=== PATIENT | female | born 1970 | race Caucasian/White ===

== ENCOUNTER 2021-03-05 20:33 | Emergency (ER) | payer MEDICARE, OTHER ==
[~2021-03-05] VITALS: Ht 172.7 cm; Wt 90.7 kg
[~2021-03-05 20:33] MED LIST: ASPIRIN EC325 MG PO; BENTYL10 MG PO; COUMADIN5 MG PO; CYCLOBENZAPRINE10 MG PO; ESTRADIOL1 MG PO; IBUPROFEN800 MG PO; NORCO 5-325 TA1 EACH PO; PERCOCET 5-3251 EACH PO; PREDNISONE20 MG PO; PROVENTIL HFA6.7 GM INH; SYMBICORT 16010.2 GM INH; ZOFRAN ODT4 MG SL
--- OUTSIDE RECORDS SUMMARY | 2021-03-05 20:36 | XMS ---
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 Phong has no Care Guidelines for this patient. John VISIT COUNT (12 MO.) 1 [facility] Cesar TOTAL 1 NOTE: Visits indicate total known visits. ED/UCC VISIT TRACKING (12 MO.) 03/05/2021 20:33 [facility] [place] TYPE: Emergency COMPLAINT: - RT KNEE PAIN INPATIENT VISIT TRACKING (12 MO.) No inpatient visits to display in this time frame [email or web address]
[2021-03-05] MEDS ORDERED: CEPHALEXIN500 MG PO (22:09)
== END 2021-03-05 22:56 | disposition home or self-care (01) ==
LOC: ED 20:33
DX: M79.604 Pain in right leg (principal); N39.0 Urinary tract infection, site not specified; J45.909 Unspecified asthma, uncomplicated; Z86.16 Personal history of COVID-19; F17.200 Nicotine dependence, unspecified, uncomplicated; Z91.040 Latex allergy status; Z88.2 Allergy status to sulfonamides; Z88.8 Allergy status to other drugs, medicaments and biological substances; Z88.5 Allergy status to narcotic agent; Z88.1 Allergy status to other antibiotic agents; Z79.52 Long term (current) use of systemic steroids
CPT/HCPCS: 81001; 93971; 96374; 99284-25; J0696

== ENCOUNTER 2021-08-10 12:57 | Day surgery (SDC) | payer MEDICARE, OTHER ==
[~2021-08-10] VITALS: Ht 172.7 cm; Wt 93.4 kg
[~2021-08-10 12:57] MED LIST changes: +CEPHALEXIN500 MG PO
[2021-08-10] MEDS ORDERED: ADVAIR 250-501 EACH INH (13:19)
[2021-08-10] MEDS ORDERED: ALLEGRA ALLERG180 MG PO (13:21)
[2021-08-10] MEDS ORDERED: OMEPRAZOLE20 MG PO (13:21)
[2021-08-10] MEDS ORDERED: VITAMIN D3125 MC1 PO (13:22)
[2021-08-10] MEDS ORDERED: SINGULAIR5 MG PO (13:22)
[2021-08-10] MEDS ORDERED: K-TAB ER20 MEQ PO (13:22)
[2021-08-10] MEDS ORDERED: CHOLEST OFF450 MG PO (13:23)
--- NOTE | 2021-08-10 15:35 | NUR ---
08/10/21 1535 Genna Clemons 1452 PT ARRIVED IN PAUC SLEEPY WITH NO C/O'S. ABD SOFT AND PASSING FLATUS. 1505 DR AT BEDSIDE TALKING WITH PT. ALL QUESTIONS ANSWERED. 1525 SITTING UP IN BED SIPPING ON WATER. 1535 GETTING DRESSED WITH STAND BY ASSIST.
--- NOTE | 2021-08-11 13:57 | OR ---
[facility] [address] [place], [place] [address] Signed DATE OF OPERATION: 08/10/2021 SURGEON: Sofia Hall MD PREOPERATIVE DIAGNOSES: Diffuse abdominal pain including epigastric and generalized abdominal pain, episodic blood per rectum and constipation. POSTOPERATIVE DIAGNOSES: 1. Normal upper endoscopy. 2. Small polyp of left colon, otherwise normal colon. PROCEDURES: 1. Esophagogastroduodenoscopy with biopsy. 2. Total colonoscopy to cecum with cold morcellation polypectomy x1 and biopsy of rectum. ANESTHESIA: Intravenous sedation, fentanyl 200 mcg and Versed 6 mg. INDICATIONS: This 51-year-old white woman is a patient of Dr. Laurent, who is referred for consideration of upper endoscopy and colonoscopy on the basis of her various abdominal complaints. She has had longstanding complaints of epigastric pain. She has had cholecystectomy in the past as well as hysterectomy. She does describe reflux type symptoms with substernal pain from time to time, no associated dysphagia. She has no esophageal cancer history in her family that she knows of. She has been recommended for upper endoscopy as well as colonoscopy on the basis of her family history. She does have family history of colon cancer in her paternal and maternal grandmother. She has no blood per rectum. She is admitted at this time to undergo colonoscopy and upper endoscopy. She understands the risks of bleeding, infection, perforation. FINDINGS: Upper endoscopy was normal in every way. Biopsies were obtained nevertheless to assess for occult disease. On colonoscopy, the prep was good. Complete colonoscopy was undertaken of the cecum, which did show a small polyp of the left colon, this was excised. Biopsies taken of the rectum to assess for occult colitis as well. DESCRIPTION OF PROCEDURE: Electronically Signed By: SOFIA HALL MD 08/11/21 1357 PATIENT NAME: SANDI MATTHEWS OPERATIVE REPORT DATE OF : 72 REPORT #: [id number] PHYSICIAN: SOFIA HALL MD PCP: TREY LAURENT MD REPORT IS CONFIDENTIAL AND NOT TO BE RELEASED WITHOUT AUTHORIZATION [facility] [address] [place], [place] [address] Signed The patient was brought to the endoscopy suite and placed in lateral decubitus position. Given intravenous sedation to the point of slurred speech and nystagmus with full cardiopulmonary monitoring. Lidocaine hypopharyngeal spray anesthesia was administered as well. An Olympus video upper endoscope was passed into the hypopharynx. The vocal cords visualized. The scope was passed into the esophagus. Esophagus was easily traversed as was the stomach and duodenum. These all appeared normal. Antral motility was normal. The pylorus was normal. Biopsies were taken of the duodenum to assess for celiac disease. The scope was withdrawn and biopsies then taken of the antrum for both ELENA and pathologic testing and appeared normal, retroflexed view showed a normal flap valve. The scope was straightened and withdrawn and biopsies taken and the esophagus was entirely normal. Careful withdrawal of scope showed no other abnormalities. Plans were then made for colonoscopy. Additional sedation was given. Digital rectal examination was found to be normal. An Olympus video colonoscope was passed in the rectum and manipulated throughout the colon ultimately intubating the cecum itself. The ileocecal valve and appendiceal orifice were normal. The scope was withdrawn from that point and examination throughout showed no sign of abnormality until the left colon approximately 40 cm where a small sessile polyp was noted, this was excised with cold morcellation technique. Further withdrawal of scope showed no other abnormalities. Biopsies were taken of the rectum to assess for occult colitis. The scope was removed after retroflexed view was otherwise normal. The patient was taken to the recovery room in good condition. CONCLUDING DIAGNOSIS: Given her constellation of symptoms, most likely she has irritable bowel syndrome I would think, this particularly true since she has had cholecystectomy in the past, hysterectomy, and so on. Consideration will be made for a low FODMAP diet. She will follow up with Dr. Laurent as needed in the future. We will give a copy of a low FODMAP diet for her to consider. MD CHALINO Caballero/REINIERL /[id number] Electronically Signed By: SOFIA HALL MD 08/11/21 1357 PATIENT NAME: SANDI MATTHEWS OPERATIVE REPORT DATE OF : 72 REPORT #: [id number] PHYSICIAN: SOFIA HALL MD PCP: TREY LAURENT MD REPORT IS CONFIDENTIAL AND NOT TO BE RELEASED WITHOUT AUTHORIZATION [facility] [address] [place] [id number] Signed Copies: ~ Electronically Signed By: SOFIA HALL MD 08/11/21 1357 PATIENT NAME: SANDI MATTHEWS OPERATIVE REPORT DATE OF : 72 REPORT #: [id number] PHYSICIAN: SOFIA HALL MD PCP: TREY LAURENT MD REPORT IS CONFIDENTIAL AND NOT TO BE RELEASED WITHOUT AUTHORIZATION
== END 2021-08-10 15:40 | disposition home or self-care (01) ==
LOC: OPS 12:57 → DS 12:59 → OPS 14:00 → DS 14:00 → OPS 15:40
PROVIDERS: ATTEND Surgery
PROC: 0DBG8ZX Excision of Left Large Intestine, Via Natural or Artificial Opening Endoscopic, Diagnostic (ICD-10-PCS; 2021-08-10)
PROC: 0DBP8ZX Excision of Rectum, Via Natural or Artificial Opening Endoscopic, Diagnostic (ICD-10-PCS; 2021-08-10)
PROC: 0DB98ZX Excision of Duodenum, Via Natural or Artificial Opening Endoscopic, Diagnostic (ICD-10-PCS; principal; 2021-08-10 14:00)
PROC: 0DB78ZX Excision of Stomach, Pylorus, Via Natural or Artificial Opening Endoscopic, Diagnostic (ICD-10-PCS; 2021-08-10 14:00)
DX: D12.4 Benign neoplasm of descending colon (principal); R12 Heartburn; F17.210 Nicotine dependence, cigarettes, uncomplicated; J45.909 Unspecified asthma, uncomplicated; D47.Z2 Castleman disease; Z90.49 Acquired absence of other specified parts of digestive tract; Z90.711 Acquired absence of uterus with remaining cervical stump; Z88.5 Allergy status to narcotic agent
CPT/HCPCS: 84703; 99153; G0500; J2250; J3010; J7121

== ENCOUNTER 2024-10-06 20:24 | Inpatient (IN) | payer MEDICARE, OTHER ==
[~2024-10-06] VITALS: Ht 172.7 cm; Wt 91.8 kg
[~2024-10-06 20:24] MED LIST changes: +ADVAIR 250-501 EACH INH; +ALLEGRA ALLERG180 MG PO; +CHOLEST OFF450 MG PO; +K-TAB ER20 MEQ PO; +OMEPRAZOLE20 MG PO; +SINGULAIR10 MG PO; +SKYRIZI PE150 MG/1 M SUB-Q; +VITAMIN D3125 MC1 PO
[2024-10-06] MEDS ORDERED: fentaNYL citrate 100 MCG/2 ML VIAL IV ONE (20:45)
[2024-10-06] MEDS ORDERED: KETOROLAC TROMETHAMINE 15 MG/ML VIAL IV ONE (20:45)
[2024-10-06] MEDS ORDERED: ondansetron HCL 4 MG/2 ML VIAL IV PRN ×2 (20:45→22:15)
[2024-10-06 20:50] LABS: BASOPHILS 0.4 % (0-2); EOSINOPHILS 0.2 % (0-6); HEMOGLOBIN 14.5 g/dL (12.0-18.0); LYMPHOCYTES 5.9 % (24-44); MCH 31.7 (27-36); MCHC 34.5 g/dl (30-36); MCV 91.8 fl (81-99); MONOCYTES 1.6 % (0-12); NEUTROPHILS 91.9 % (39-80); PLATELET COUNT 177 K/uL (140-440); RBC 4.57 M/ul (4.3-5.7); RDW 13.3 (10.5-15.0)
[2024-10-06 20:59] LABS: BILIRUBIN, URINE NEGATIVE (negative); BLOOD/HGB, URINE LARGE (Negative); KETONE, URINE NEGATIVE (Negative); LEUK ESTERASE, URINE SMALL (negative); NITRITE, URINE POSITIVE (negative)
[2024-10-06] MEDS ORDERED: SODIUM CHLORIDE 0.9% 1,000 ML IV ONE ×2 (21:00→22:15)
[2024-10-06 21:08] LABS: WHITE BLOOD CELLS, URINE 21-40 /HPF (0-5)
[2024-10-06 21:08] LABS: ALBUMIN 3.7 g/dL (3.4-5.0); ALBUMIN/GLOBULIN RATIO 0.86 (1.1-2.4); ANION GAP 12.9 (7-21); BILIRUBIN, TOTAL 0.9 ng/dL (0.2-1.0); BUN/CREATININE RATIO 18.25 (6.0-28.6); CALCIUM 9.5 mg/dL (8.5-10.1); CREATININE, SERUM 1.26 mg/dL (0.55-1.02); POTASSIUM 3.9 mmol/L (3.5-5.1)
[2024-10-06 21:09] LABS: BACTERIA, URINE 3+ /hpf (negative); COLLECTION TYPE, URINE CLEAN CATCH; CRYSTALS, URINE NONE SEEN (0-1+); EPITHELIAL CELLS, URINE SQUAMOUS 1+ /lpf (0-1+); REFLEX CULTURE, URINE Yes (No)
[2024-10-06 21:11] LABS: CASTS, URINE HYALINE 1+ \\lpf
[2024-10-06] MEDS ORDERED: CEFTRIAXONE/SODIUM CHLORIDE 2 GM/100 ML PIGGYBACK IV ONE (21:15)
[2024-10-06 21:29] LABS: ALBUMIN 3.7 g/dL (3.4-5.0); ALBUMIN/GLOBULIN RATIO 0.84 (1.1-2.4); BILIRUBIN, DIRECT 0.2 mg/dL (0.0-0.2); BILIRUBIN, INDIRECT 0.6 (0.1-0.7); BILIRUBIN, TOTAL 0.8 ng/dL (0.2-1.0); PROTEIN, TOTAL 8.1 g/dL (6.4-8.2)
[2024-10-06] MEDS ORDERED: ALBUTEROL/IPRATROPIUM 3 ML NEB INH ONE (21:30)
[2024-10-06] MEDS ORDERED: HYDROmorphone HCL 1 MG/ML SYR IV PRN ×2 (22:00→22:15)
[2024-10-06] MEDS ORDERED: ACETAMINOPHEN 325 MG TAB PO PRN (22:15)
[2024-10-06] MEDS ORDERED: ALBUTEROL/IPRATROPIUM 3 ML NEB INH PRN ×2 (22:15→23:30)
[2024-10-06] MEDS ORDERED: SODIUM CHLORIDE 0.9% 1,000 ML IV SCH (22:15)
[2024-10-06] MEDS ORDERED: KETOROLAC TROMETHAMINE 15 MG/ML VIAL IV PRN (22:15)
[2024-10-06 23:08] VITALS: BP 86/42
[2024-10-06 23:27] VITALS: BP 91/46
--- NOTE | 2024-10-06 23:40 | NUR ---
New admit to the medical floor. Patient awake, alert and oriented x4. Patient reports bilat flank pain and headache pain. ICe pack and tylenol 650mg po admin at this time with a snack. Patient mother at bedside with her. IV fluids infusing per order. Patient oriented to room and call light.
[2024-10-07] VITALS (12 sets, daily range): BP systolic 85–117; BP diastolic 38–57
--- NOTE | 2024-10-07 03:46 | NUR ---
REPORT RECEIVED FROM LASHAUN POLLARD. ASSUMED CARE OF pt. pt AWAKE, RESTING IN BED, STATES PAIN IS BETTER. DENIES NEEDS. IVF INFUSING WNL. CALL LIGHT IN REACH. VERBALIZES UNDERSTANDING NOT TO GET OUT OF BED WITHOUT ASSIST.
--- NOTE | 2024-10-07 03:47 | NUR ---
CALL LIGHT ANSWERED. pt COMPLAINS OF SOB. REQUESTS PRN NEB TREATMENT. ADMINISTERED AT THIS TIME. CALL LIGHT IN REACH.
[2024-10-07 05:34] LABS: BASOPHILS 0.3 % (0-2); EOSINOPHILS 0.2 % (0-6); HEMATOCRIT 30.2 % (35.0-50.0); HEMOGLOBIN 10.4 g/dL (12.0-18.0); LYMPHOCYTES 8.3 % (24-44); MCH 31.8 (27-36); MCHC 34.5 g/dl (30-36); MCV 92.1 fl (81-99); MONOCYTES 5.7 % (0-12); NEUTROPHILS 85.5 % (39-80); PLATELET COUNT 136 K/uL (140-440); RBC 3.28 M/ul (4.3-5.7); RDW 13.1 (10.5-15.0)
--- NOTE | 2024-10-07 05:46 | NUR ---
IN ROOM AFTER LAB DRAW. SBA TO RESTROOM FOR VOID, pt REPORTS FEELING DIZZY UPON SITTING AT SIDE OF BED, GAIT STEADY WHEN AMBULATING. 250 ML VOID AND BACK TO BED. ASSESSMENT COMPLETE, LUNG SOUNDS CLEAR THROUGHOUT ALL LOBES. TRACE EDEMA BLE AND RIGHT HAND. IV SITE FLUSHED WNL. PRN TORADOL ADMINISTERED FOR 4/10 POWELL. CALL LIGHT IN REACH. LIGHTS OFF IN ROOM.
[2024-10-07 05:55] LABS: ALBUMIN 2.3 g/dL (3.4-5.0); ALBUMIN/GLOBULIN RATIO 0.74 (1.1-2.4); ANION GAP 11.7 (7-21); BILIRUBIN, TOTAL 0.4 ng/dL (0.2-1.0); BUN/CREATININE RATIO 16.66 (6.0-28.6); CALCIUM 7.9 mg/dL (8.5-10.1); CREATININE, SERUM 1.08 mg/dL (0.55-1.02); MAGNESIUM 1.8 mg/dL (1.8-2.4); POTASSIUM 3.7 mmol/L (3.5-5.1); PROTEIN, TOTAL 5.4 g/dL (6.4-8.2)
--- NOTE | 2024-10-07 07:44 | NUR ---
REPORT RECEIVED BY NIGHT RN - PT AWAKE IN BED LOOKING AT PHONE. C/O HEADACHE AND TEETH PAIN. STATES DILAUDID MAYBE WORSENED HEADACHE. ICE PACK PROVIDED. CALL LIGHT IN REACH.
[2024-10-07] MEDS ORDERED: ALBUTEROL/IPRATROPIUM 3 ML NEB INH PRN (08:27)
[2024-10-07] MEDS ORDERED: BUDESONIDE 0.5 MG/2 ML VIAL INH SCH ×2 (08:27→09:00)
[2024-10-07] MEDS ORDERED: ALBUTEROL SULFATE 0.083% 3 ML VIAL INH PRN (08:30)
--- NOTE | 2024-10-07 08:40 | NUR ---
AM ASSESSMENT COMPLETE - PT COMPLAINS OF HEADACHE AND GENERALIZED ACHE/UNWELL FEELING. PRN TYLENOL ADMINISTERED FOR THIS, ICE PACK ON HEAD. AWAITING FURTHER ADMIT ORDERS.
--- NOTE | 2024-10-07 10:58 | NUR ---
PT UP TO AMBULATE TO BATHROOM - HEADACHE UPON STANDING IS HER BIGGEST COMPLAINT AT THIS TIME. HEADACHE NOT IMPROVED WITH TYLENOL, ONLY STAYING STILL IN BED HELPS. PT DENIES A HISTORY OF MIGRAINES. BACK TO BED WITH CALL LIGHT IN REACH.
--- NOTE | 2024-10-07 12:21 | NUR ---
RN ROUNDING ON PT - PT SITTING UP IN BED EATING LUNCH WITH MOTHERS ASSISTANCE. CALL LIGHT IN REACH.
[2024-10-07] MEDS ORDERED: HYDROCODONE/ACETA 5/325 TAB PO PRN (12:30)
[2024-10-07] MEDS ORDERED: SODIUM CHLORIDE 0.9% 1,000 ML IV SCH (12:30)
[2024-10-07] MEDS ORDERED: ondansetron HCL 4 MG/2 ML VIAL IV PRN (12:30)
--- NOTE | 2024-10-07 13:28 | NUR ---
PRN ADMINISTERED PER PT REQUEST FOR 5/10 HEAD AND BACK PAIN. PT RESTING IN BED LOOKING AT PHONE, NO DISTRESS NOTED. IV SITE PATENT WITH IVF INFUSING PER EMAR. PT REPORTS PAIN IN ABD AFTER URINATING, EDUCATION ON UTI PROVIDED. MOTHER AT BEDSIDE. CALL LIGHT IN REACH.
--- NOTE | 2024-10-07 16:37 | NUR ---
PATIENT UP TO BATHROOM TO VOID. PATIENT IS ON 2L OF OXYGEN, PULSE OX TREND SHOWS 5 EPISODES PER HOUR THAT PATIENT DROPS BELOW 85% WHILE TRYING TO SLEEP. PATIENT REPORTS CONTINUED HEADACHE.
[2024-10-07] MEDS ORDERED: KETOROLAC TROMETHAMINE 15 MG/ML VIAL IV ONE (16:45)
--- NOTE | 2024-10-07 16:49 | NUR ---
MED REC COMPLETE
--- NOTE | 2024-10-07 17:30 | NUR ---
PT CONTINUES TO COMPLAINE OF 7/10 GENERALIZED PAIN AND WORSENING HEADACHE WHEN STANDING TO AMBULATE TO THE BATHROOM. PT REPORTS CHILLS, ORAL TEMP 100.3. IV TORADOL ADMINISTERED PER EMAR. PT PICKING AT DINNER. CPOX IN PLACE.
--- NOTE | 2024-10-07 19:05 | NUR ---
REPORT RECEIVED FROM KRYSTYNA WILKS. pt RESTING THE BED. NEW BAG OF IVF INFUSING PER ORDER. pt DENIES ANY NEEDS AT THIS TIME. CALL LIGHT WITHIN REACH.
[2024-10-07] MEDS ORDERED: CEFTRIAXONE/SODIUM CHLORIDE 2 GM/100 ML PIGGYBACK IV SCH (21:00)
[2024-10-07] MEDS ORDERED: MELATONIN 3 MG TAB PO PRN (21:00)
--- NOTE | 2024-10-07 21:15 | NUR ---
ASSESSMENT AND VITAL SIGNS DONE. pt UP TO THE BR, SBA FOR LINE/TUBE MANAGEMENT. pt C/O 5/10 PAIN. PRN PAIN MEDS ADMINISTERED. HEAT PACK PROVIDED. SCHEDULED MEDS ADMINISTERED. pt DENIES ANY OTHER NEEDS AT THIS TIME. CALL LIGHT WITHIN REACH. WATER REFRESHED. 1LNC PLACED ON pt FOR CHIEF PROGRAM OFFICER.
[2024-10-08] VITALS (10 sets, daily range): BP systolic 96–132; BP diastolic 49–62
--- NOTE | 2024-10-08 00:03 | NUR ---
IN RM FOR BEEPING IV. pt STATES SHE HAS TO USE THE BR. THIS RN ASSISSTED pt TO BSC DUE TO pt HAVING PAIN IN HER HEAD THAT INCREASES WITH ACTIVITY AND LIGHT. pt GREATFUL AND STATES THAT IT HER PAIN WAS BETTER WHEN SHE DID IT THAT WAY. HOT PACK PROVIDED. pt DENIES ANY OTHER NEEDS AT THIS TIME. CPOX ON. 2LNC ON FOR THE NIGHT. CALL LIGHT WITHIN REACH.
--- NOTE | 2024-10-08 02:11 | NUR ---
pt RESTING IN THE BED. WATER REFRESHED. pt DENIES ANY OTHER NEEDS AT THIS TIME. CALL LIGHT WITHIN REACH.
--- NOTE | 2024-10-08 02:21 | NUR ---
pt CALLED FOR BEEPING IV. NEW HOT PACK PROVIDED. WATER REFRESHED. pt DENIES ANY OTHER NEEDS AT THIS TIME. CALL LIGHT WITHIN REACH.
--- NOTE | 2024-10-08 04:00 | NUR ---
IN RM TO CHECK ON pt. pt UP TO THE BR. pt BACK TO THE BED. HOT PACK PROVIDED. pt REQUEST BREATHING TREATMENT. RT CALLED. NO OTHER NEEDS AT THIS AT THIS TIME. CALL LIGHT WITHIN REACH.
[2024-10-08 05:24] LABS: HEMATOCRIT 30.7 % (35.0-50.0)
[2024-10-08 05:26] LABS: BASOPHILS 0.5 % (0-2); EOSINOPHILS 0.8 % (0-6); HEMOGLOBIN 10.2 g/dL (12.0-18.0); LYMPHOCYTES 15.3 % (24-44); MCH 31.2 (27-36); MCHC 33.4 g/dl (30-36); MCV 93.6 fl (81-99); MONOCYTES 8.8 % (0-12); NEUTROPHILS 74.6 % (39-80); PLATELET COUNT 115 K/uL (140-440); RBC 3.28 M/ul (4.3-5.7); RDW 13.5 (10.5-15.0)
[2024-10-08 05:44] LABS: ALBUMIN/GLOBULIN RATIO 0.59 (1.1-2.4); ANION GAP 8.6 (7-21); BILIRUBIN, TOTAL 0.2 ng/dL (0.2-1.0); BUN/CREATININE RATIO 9.09 (6.0-28.6); CALCIUM 7.9 mg/dL (8.5-10.1); CREATININE, SERUM 0.99 mg/dL (0.55-1.02); MAGNESIUM 1.6 mg/dL (1.8-2.4); PHOSPHORUS, INORGANIC 2.9 mg/dL (2.5-4.9); POTASSIUM 3.6 mmol/L (3.5-5.1); PROTEIN, TOTAL 5.4 g/dL (6.4-8.2)
--- NOTE | 2024-10-08 06:01 | NUR ---
IN RM TO OFF BEEPING IV. pt C/O 04/04 PAIN. PRN PAIN MEDS ADMINISTERED. pt DENIES ANY OTHER NEEDS AT THIS TIME. CALL LIGHT WITHIN REACH.
--- NOTE | 2024-10-08 08:06 | NUR ---
PATIENT UP TO BATHROOM THEN TO CHAIR, SBA. LINENS CHANGED. AM CARE DONE. CALL LIGHT IN REACH. NO FURTHER NEEDS AT THIS TIME.
[2024-10-08] MEDS ORDERED: MAGNESIUM SULFATE 2 GM/50 ML BAG IV ONE (08:15)
--- NOTE | 2024-10-08 08:15 | NUR ---
RN IN ROOM - AM ASSESSMENT COMPLETE. PT ALREADY UP IN CHAIR FOR BREAKFAST WITH METAL STAMPER ASSISTANCE. STATES HEADACHE IS SOMEWHAT IMPROVED WITH PRN NORCO AT 0600. DENIES NAUSEA, FLANK PAIN WORSE AFTER URINATION. PT UPDATED ON CURRENT PLAN OF CARE TO CONTINUE IV ABX AND AWAIT URINE CULTURE RESULTS, PAIN CONTROL, AND MONITORING VS FOR FEVER AND HYPOTENSION. PT STATES UNDERSTANDING. IV SITE PATENT, MAG RIDER STARTED. CALL LIGHT IN REACH.
[2024-10-08] MEDS ORDERED: ENOXAPARIN SODIUM 40 MG/0.4 ML SYR SUB-Q SCH (09:00)
[2024-10-08] MEDS ORDERED: PANTOPRAZOLE SODIUM 40 MG TABEC PO SCH (09:00)
--- NOTE | 2024-10-08 09:30 | NUR ---
INTO SEE PATIENT. PERSONAL INFORMATION REVIEWED PATIENT MARII BLACKMAN PHONE NUMBER: [phone] WILL UPDATE WITH ADMITTING. PATIENT LIVES AT HOME WITH ADULT SON. ONE LEVEL HOME AND NO DIFFCULTY GETTING INTO. PATIENT DRIVES HERSELF AND WILL HAVE BOYFRIEND HUNTER TO PICKUP. PATIENT USES NEBULIZER THROUGH [facility]. NO DIFFCULTY OBTAINING FOOD OR PAYING FOR UTILITIES. PATIENT DOES NOT CASE MANAGEMENT AT THIS TIME. WILL CONTINUE FOLLOW THROUGH HOSPITAL STAY.
--- NOTE | 2024-10-08 09:43 | NUR ---
NEW BAG OF IVF HANGING. BREAKFAST INTAKE RECORDED AND TRAY REMOVED.
--- NOTE | 2024-10-08 10:07 | NUR ---
VS AND I/O COMPLETE. PT BACK TO BED TO REST AFTER AMBULATING TO BATHROOM. DENIES DIZZINESS WITH AMBULATION, STEADY ON FEET. 2L NC PLACED R/T DESATURATION R/T NARCOTIC USE, NOT CHRONIC, CPOX IN PLACE. URINE KWOK AND CONCENTRATED WITH SOME SEDIMENT. CALL LIGHT IN REACH.
--- NOTE | 2024-10-08 11:20 | NUR ---
UR CLINICAL REVIEW: 2 MN FOR [facility]ERSAL[facility]-MEETS INPT CRITERIA FOR PYELONEPHRITIS MEDICARE INPT 10/07/24 ORDER MATCHES REG NO AUTH REQUIRED PER MEDICARE GUIDELINES DISCHARGE TO HOME WHEN STABLE
--- NOTE | 2024-10-08 11:30 | NUR ---
RN IN ROOM TO ATTEND TO ALARMING IV PUMP - PT RESTING IN BED AND DENIES NEEDS AT THIS TIME. CALL LIGHT IN REACH.
[2024-10-08] MEDS ORDERED: PHARMACY RENAL DOSE ADJUSTMENT 1 DOSE MISC PO SCH (12:00)
--- NOTE | 2024-10-08 13:30 | NUR ---
RN ROUNDING ON PT - REQUESTS PAIN MEDICATION, PRN ADMINISTERED. IV SITE PATENT WITH IVF RUNNING. PT STATES SHE IS GENERALLY IMPROVING, PAIN IS DECREASING. CONTINUING TO MONITOR FOR URINE CULTURE RESULTS. CALL LIGHT IN REACH.
--- NOTE | 2024-10-08 17:40 | NUR ---
PT UP TO BATHROOM - NEEDS MINIMAL ASSISTANCE WITH EQUIPMENT. DENIES NEED FOR FURTHER PAIN MEDICATION AT THIS TIME.
--- NOTE | 2024-10-08 17:53 | NUR ---
PATIENT IN BED RESTING AT THIS TIME. VITALS AND I&O'S DONE AND CHARTED. FRESH ICE WATER GIVEN. CALL LIGHT IN REACH. NO FURTHER NEEDS AT THIS TIME.
--- NOTE | 2024-10-08 19:05 | NUR ---
REPORT RECEIVED FROM KRYSTYNA WILKS. BOARD UPDATED. pt DENIES ANY OTHER NEEDS AT THIS TIME. CALL LIGHT WITHIN REACH.
--- NOTE | 2024-10-08 21:10 | NUR ---
ASSESSMENT AND VITAL SIGNS DONE. pt UP TO THE BR. PRN AND SCHEDULED MEDS ADMINISTERED. pt DENIES ANY OTHER NEEDS AT THIS TIME. CALL LIGHT WITHIN REACH. 2LNC PLACED ON pt FOR THE NIGHT.
[2024-10-09] VITALS (7 sets, daily range): BP systolic 108–146; BP diastolic 50–73
--- NOTE | 2024-10-09 00:42 | NUR ---
pt CALLED FOR IV ALARMING. NEW BAG OF IVF HUNG AND INFUSING PER ORDER. pt UP TO THE BR. pt BACK TO BED. pt PLACED ON 2L OXYMASK. pt DENIES ANY OTHER NEEDS AT THIS TIME. CALL LIGHT WITHIN REACH.
--- NOTE | 2024-10-09 02:35 | NUR ---
pt RESTING IN THE BED WITH EYES CLOSED. RR EVEN AND UNLABORED. CALL LIGHT WITHIN REACH.
[2024-10-09 05:26] LABS: BASOPHILS 0.5 % (0-2); EOSINOPHILS 1.4 % (0-6); HEMATOCRIT 31.1 % (35.0-50.0); HEMOGLOBIN 10.6 g/dL (12.0-18.0); LYMPHOCYTES 14.4 % (24-44); MCH 31.3 (27-36); MCHC 34.2 g/dl (30-36); MCV 91.7 fl (81-99); MONOCYTES 8.8 % (0-12); NEUTROPHILS 74.9 % (39-80); PLATELET COUNT 154 K/uL (140-440); RBC 3.39 M/ul (4.3-5.7); RDW 13.4 (10.5-15.0)
[2024-10-09 05:43] LABS: ANION GAP 12.7 (7-21); BUN/CREATININE RATIO 10.75 (6.0-28.6); CALCIUM 8.6 mg/dL (8.5-10.1); CREATININE, SERUM 0.93 mg/dL (0.55-1.02); MAGNESIUM 1.5 mg/dL (1.8-2.4); POTASSIUM 3.7 mmol/L (3.5-5.1)
--- NOTE | 2024-10-09 07:23 | NUR ---
VERBAL REPORT RECEIVED FROM LASHAUN KLINE. PT IS AWAKE AND ALERT IN BED. ICE CHIPS PROVIDED PER PT REQUEST. NO FURTHER REQUESTS AT THIS TIME.
--- NOTE | 2024-10-09 08:08 | NUR ---
IS PROVIDED. EDUCATION ON USE OF IS PROVIDED. PT RETURN DEMONSTRATES USE. NON-PRODUCTIVE COUGH NOTED WITH USE OF IS. PT SATS 93% ON RA.
[2024-10-09] MEDS ORDERED: MAGNESIUM OXIDE 400 MG TABLET PO ONE (08:15)
[2024-10-09] MEDS ORDERED: SENNOSIDES/DOCUSATE 1 EA TAB PO SCH (09:00)
[2024-10-09] MEDS ORDERED: POLYETHYLENE GLYCOL 3350 1 PACKET PO SCH (09:00)
[2024-10-09] MEDS ORDERED: BUTALB/ACETAMINOPHEN/CAFFEINE 1 EACH CAP PO PRN (09:45)
--- NOTE | 2024-10-09 10:08 | NUR ---
PT NOT AVAILABLE FOR VISIT. PROVIDED PRAYER.
--- NOTE | 2024-10-09 12:09 | NUR ---
PT UP TO TOILET, VOIDS CLEAR YELLOW URINE AND PASSES LARGE FORMED BM. PT TO RECLINER. SITS UP IN RECLINER WITH BLE ELEVATED. CALL LIGHT IN REACH. PT RATES HEADACHE 6/10 AT THIS TIME. PT RECEIVES BUTALBITAL/ACETAMENOPHEN/CAFFEINE MEDICATION FOR HEADACHE, SEE EMAR. WARM BLANKET PROVIDED, NO FURTHER REQUESTS AT THIS TIME.
--- NOTE | 2024-10-09 13:45 | NUR ---
Spoke with Kera. She states she feels a little better. Cont. to complain of severe headache. Blinds closed and this did help somewhat. She denies needs on dc.
--- NOTE | 2024-10-09 17:07 | NUR ---
PT RESTS IN BED, AWAKE AND ALERT, EATS DINNER, FAMILY X2 AT BEDSIDE. PT REPORTS HEADACHE NOW 2/10, TOLERABLE AT THIS TIME. CALL LIGHT IN REACH. ICE WATER PROVIDED. NO FURTHER REQUESTS AT THIS TIME.
--- NOTE | 2024-10-09 19:05 | NUR ---
REPORT RECEIVED FROM KRYSTYNA WILKS. pt RESTING IN THE BED. BOARD UPDATED. pt DENIES ANY OTHER NEEDS AT THIS TIME. CALL LIGHT WITHIN REACH.
--- NOTE | 2024-10-09 20:30 | NUR ---
PATIENT REPORTS HAVING THE CHILLS. VITALS TAKEN AND RECORDED. PATIENT IS AFEBRILE AT THIST TIME. PATIENT ASSISTED TO THE RESTROOM A SBA. PATIENT IS BACK IN BED RESTING. IV INFUSING PER ORDER. PATIENT RATES PAIN AT A 6/10 IN HER LOWER BACK. NO FURTHER NEEDS NOTED. CALL LIGHT IN REACH.
--- NOTE | 2024-10-09 20:55 | NUR ---
PATIENT IS RESTING IN BED. PATIENTS TEMP REEVALUATED PATIENT CONTINUES TO REPORTS CHILLS AND BODY ACHES. PATIENTS TEMP REEVALUATED AND NOTED TO BE 101.1. PATIENTS BLANKETS REMOVED AND PRIMARY RN NOTIFIED. PM MEDS GIVEN PER ORDER. IV ABX INFUSING PER ORDER. PATIENT DENIES ANY NAUSEA. PATIENT DENIES ANY FURTHER NEEDS. CALL LIGHT IN REACH. PRIMARY RN AT BEDSIDE.
--- NOTE | 2024-10-09 21:00 | NUR ---
ASSESSMENT AND VITAL SIGNS DONE. pt UP TO THE BR AND BACK TO THE BED. pt HAS A FEVER OF 101.1. PRN NORCO ADMINISTERED. CPOX ON. IVF INFUSING PER ORDER. pt DENIES ANY OTHER NEEDS AT THIS TIME. CALL LIGHT WITHIN REACH.
--- NOTE | 2024-10-09 22:00 | NUR ---
pt UP TO THE BR. TEMP RECHECKED WITH A RESULTS OF 100.5. PRN MEDS ADMINSTERED. pt BACK TO BED. pt DENIES ANY OTHER NEEDS AT THIS TIME. CALL LIGHT WITHIN REACH.
--- NOTE | 2024-10-09 23:24 | NUR ---
IN RM TO TRY TO PUT IN A NEW IV PER pt REQUEST. TEMP RECHECKED WITH A RESULTS OF 99.0. NO LUCK ON THE IV. pt DENIES ANY OTHER NEEDS AT THIS TIME. CALL LIGHT WITHIN REACH.
--- NOTE | 2024-10-10 02:11 | NUR ---
pt RESTING IN THE BED. RR EVEN AND UNLABORED. CALL LIGHT WITHIN REACH.
--- NOTE | 2024-10-10 04:07 | NUR ---
pt RESTING IN THE BED WITH EYES CLOSED. RR EVEN AND UNLABORED. CALL LIGHT WITHIN REACH.
[2024-10-10 05:45] VITALS: BP 113/54
[2024-10-10 05:47] VITALS: BP 113/54
[2024-10-10 05:48] LABS: HEMATOCRIT 26.7 % (35.0-50.0); HEMOGLOBIN 9.1 g/dL (12.0-18.0); MCH 31.3 (27-36); MCHC 34.2 g/dl (30-36); MCV 91.4 fl (81-99); PLATELET COUNT 149 K/uL (140-440); RBC 2.92 M/ul (4.3-5.7); RDW 13.4 (10.5-15.0)
[2024-10-10 06:03] LABS: ANION GAP 10.6 (7-21); BANDS, MANUAL DIFF 4; BUN/CREATININE RATIO 9.3 (6.0-28.6); CALCIUM 8.4 mg/dL (8.5-10.1); CREATININE, SERUM 0.86 mg/dL (0.55-1.02); EOSINOPHILS, MANUAL DIFF 1; LYMPHOCYTES, MANUAL DIFF 21; MAGNESIUM 1.6 mg/dL (1.8-2.4); MONOCYTES, MANUAL DIFF 3; NEUTROPHILS, MANUAL DIFF 71; POTASSIUM 3.6 mmol/L (3.5-5.1)
--- NOTE | 2024-10-10 06:10 | NUR ---
pt UP TO THE BR, SBA FOR LINE/TUBE MANAGEMENT. pt BACK TO BED. RT CALLED FOR PRN BREATHING TREATMENT. CPOX ON. pt DENIES ANY OTHER NEEDS AT THIS TIME. CALL LIGHT WITHIN REACH.
--- NOTE | 2024-10-10 07:35 | NUR ---
VERBAL REPORT RECEIVED FROM LASHAUN KLINE. PT IS AWAKE AND ALERT, NO REQUESTS AT THIS TIME.
[2024-10-10] MEDS ORDERED: MAGNESIUM OXIDE 400 MG TABLET PO ONE (09:00)
--- NOTE | 2024-10-10 09:35 | NUR ---
Spoke with Kera. Discussed IM letter and possibility she may be able to dc. Pt denies needs to go home and states she has good support at home.
[2024-10-10 09:37] VITALS: BP 122/64
[2024-10-10] MEDS ORDERED: AMOXICILLIN-CL1 EACH PO (11:55)
[2024-10-10] MEDS ORDERED: HYDROCODON-ACE1 EA10 PO (11:56)
[2024-10-10] MEDS ORDERED: AZITHROMYCIN500 MG PO (12:02)
--- NOTE | 2024-10-10 12:09 | NUR ---
DR. ESCOBAR NOTIFIED OF PT FEVER OVER NIGHT, INCREASED ABDOMINAL TENDERNESS AND O2 2L USED DURING HOURS OF SLEEP FOR SATS 86-87%. NEW ANTIBIOTIC ORDERED. PT LUNGS ARE CLEAR. IS ENCOURAGED.
[2024-10-10 13:09] VITALS: BP 135/68
--- NOTE | 2024-10-10 14:03 | NUR ---
DISCUSSED DISCHARGE INSTRUCTIONS WITH PT, PT VERBALIZES UNDERSTANDING. PT DRESSES SELF. PT LEAVES MED-SURG VIA WHEELCHAIR, ESCORTED BY THIS RN TO PRIVATE CARE DRIVEN BY S/O.
== END 2024-10-10 14:03 | disposition home or self-care (01) | DRG 872 ==
LOC: ED 20:24 → MS 22:09
PROVIDERS: Family Medicine; Student in an Organized Health Care Education/Training Program; ADMIT Family Medicine; ATTEND Family Medicine
DX: A41.9 Sepsis, unspecified organism (principal); N12 Tubulo-interstitial nephritis, not specified as acute or chronic; N17.9 Acute kidney failure, unspecified; D69.6 Thrombocytopenia, unspecified; E83.42 Hypomagnesemia; J45.909 Unspecified asthma, uncomplicated; K58.9 Irritable bowel syndrome, unspecified; M54.9 Dorsalgia, unspecified; Z87.891 Personal history of nicotine dependence; Z98.51 Tubal ligation status; Z90.710 Acquired absence of both cervix and uterus; Z90.49 Acquired absence of other specified parts of digestive tract; Z98.890 Other specified postprocedural states; Z86.16 Personal history of COVID-19; Z86.718 Personal history of other venous thrombosis and embolism; Z88.1 Allergy status to other antibiotic agents; Z91.040 Latex allergy status; Z88.2 Allergy status to sulfonamides; Z88.8 Allergy status to other drugs, medicaments and biological substances; Z91.018 Allergy to other foods
CPT/HCPCS: 36415; 74176; 80048; 80053; 80076; 81001; 83605; 83735; 84100; 84703; 85025; 87040; 87077; 87088; 87186; 94640; 96374; 96375; 99285-25; A9270; J0696; J1171; J1885; J2405; J3475; J7030

== ENCOUNTER 2024-10-18 14:04 | Emergency (ER) | payer MEDICARE, OTHER ==
[~2024-10-18] VITALS: Ht 172.7 cm; Wt 88.0 kg
[~2024-10-18 14:04] MED LIST changes: +AMOXICILLIN-CL1 EACH PO; +AZITHROMYCIN500 MG PO; +HYDROCODON-ACE1 EA10 PO
--- OUTSIDE RECORDS SUMMARY | 2024-10-18 14:11 | XMS ---
PreManage Notification: SANDI MATTHEWS Security Clinical Account Liaison Events No recent Security Events currently on file CRITERIA MET - [facility] - 2 Visits in 30 Days CARE PROVIDERS There are no care providers on record at this time. Phong has no Care Guidelines for this patient. John [facility] MO.) [facility] NOTE: Visits indicate total known visits. ED/C VISIT TRACKING (12 MO.) 10[facility]18[facility]24 14:[facility] [place] [facility] COMPLAINT: - FLANK PAIN 10/06/2024 20:25 [facility] [place] TYPE: Emergency COMPLAINT: - LOW BACK PAIN 12/11/2023 10:37 [facility] [place] TYPE: Emergency COMPLAINT: - CHEST PAIN DIAGNOSES: - Allergy status to narcotic agent - Allergy status to other antibiotic agents - Allergy status to other drugs, medicaments and biological substances - Allergy status to sulfonamides - Chest pain, unspecified - Dorsalgia, unspecified - Latex allergy status - Nicotine dependence, unspecified, uncomplicated - Other care home (current) drug therapy - Unspecified asthma, uncomplicated INPATIENT VISIT TRACKING (12 MO.) 10/06/2024 22:09 [facility] [place] TYPE: [facility] COMPLAINT: - PYELONEPHRITIS,SEPSIS DIAGNOSES: - Acquired absence of both cervix and uterus - Acquired absence of both cervix and uterus - Acquired absence of other specified parts of digestive tract - Acquired absence of other specified parts of digestive tract - Acute kidney failure, unspecified - Acute kidney failure, unspecified - Allergy status to other antibiotic agents - Allergy status to other antibiotic agents - Allergy status to other drugs, medicaments and biological substances - Allergy status to other drugs, medicaments and biological substances - Allergy status to sulfonamides - Allergy status to sulfonamides - Allergy to other foods - Allergy to other foods - Dorsalgia, unspecified - Dorsalgia, unspecified - Hypomagnesemia - Hypomagnesemia - Irritable bowel syndrome without diarrhea - Irritable bowel syndrome without diarrhea - Latex allergy status - Latex allergy status - Other specified postprocedural states - Other specified postprocedural states - Personal history of COVID-19 - Personal history of COVID-19 - Personal history of nicotine dependence - Personal history of nicotine dependence - Personal history of other venous thrombosis and embolism - Personal history of other venous thrombosis and embolism - Sepsis, unspecified organism - Thrombocytopenia, unspecified - Thrombocytopenia, unspecified - Tubal ligation status - Tubal ligation status - Tubulo-interstitial nephritis, not specified as acute or chronic - Tubulo-interstitial nephritis, not specified as acute or chronic - Unspecified asthma, uncomplicated - Unspecified asthma, uncomplicated [email or web address]
[2024-10-18 15:16] LABS: BILIRUBIN, URINE NEGATIVE (negative); BLOOD/HGB, URINE NEGATIVE (Negative); KETONE, URINE NEGATIVE (Negative); LEUK ESTERASE, URINE NEGATIVE (negative); NITRITE, URINE NEGATIVE (negative); PH, URINE 5.5 (5-7)
[2024-10-18 15:18] LABS: EOSINOPHILS 5.4 % (0-6); HEMATOCRIT 38.6 % (35.0-50.0); HEMOGLOBIN 12.8 g/dL (12.0-18.0); MCH 30.4 (27-36); MCHC 33.1 g/dl (30-36); MCV 91.8 fl (81-99); MONOCYTES 8.6 % (0-12); PLATELET COUNT 544 K/uL (140-440); RDW 12.9 (10.5-15.0)
[2024-10-18 15:25] LABS: ALBUMIN 3.4 g/dL (3.4-5.0); ALBUMIN/GLOBULIN RATIO 0.74 (1.1-2.4); ANION GAP 11.9 (7-21); BILIRUBIN, TOTAL 0.4 ng/dL (0.2-1.0); BUN/CREATININE RATIO 19.76 (6.0-28.6); CALCIUM 9.3 mg/dL (8.5-10.1); CREATININE, SERUM 0.86 mg/dL (0.55-1.02); POTASSIUM 3.9 mmol/L (3.5-5.1)
[2024-10-18] MEDS ORDERED: KETOROLAC TROMETHAMINE 15 MG/ML VIAL IV ONE (16:45)
[2024-10-18] MEDS ORDERED: ondansetron HCL 4 MG/2 ML VIAL IV ONE (16:45)
[2024-10-18] MEDS ORDERED: SODIUM CHLORIDE 0.9% 1,000 ML IV ONE (16:45)
[2024-10-18] MEDS ORDERED: ONDANSETRON ODT8 MG PO (17:43)
[2024-10-18 17:48] VITALS: BP 119/67
== END 2024-10-18 17:48 | disposition home or self-care (01) ==
LOC: ED 14:04
PROVIDERS: Emergency Medicine
DX: R10.13 Epigastric pain (principal); J45.909 Unspecified asthma, uncomplicated; K58.9 Irritable bowel syndrome, unspecified; F17.200 Nicotine dependence, unspecified, uncomplicated; Z86.16 Personal history of COVID-19; Z86.718 Personal history of other venous thrombosis and embolism; Z88.2 Allergy status to sulfonamides; Z88.1 Allergy status to other antibiotic agents; Z88.5 Allergy status to narcotic agent; Z88.8 Allergy status to other drugs, medicaments and biological substances; Z91.040 Latex allergy status; Z91.018 Allergy to other foods; Z79.899 Other long term (current) drug therapy
CPT/HCPCS: 36415; 80053; 81003; 83690; 85025; 96374; 96375; 99283-25; J1885; J2405; J7030

== ENCOUNTER 2024-11-23 09:24 | Emergency (ER) | payer MEDICARE, OTHER ==
[~2024-11-23] VITALS: Ht 172.7 cm; Wt 90.3 kg
[~2024-11-23 09:24] MED LIST changes: +ONDANSETRON ODT8 MG PO
[2024-11-23 09:45] LABS: BILIRUBIN, URINE NEGATIVE (negative); BLOOD/HGB, URINE TRACE-I (Negative); KETONE, URINE NEGATIVE (Negative); LEUK ESTERASE, URINE TRACE (negative); NITRITE, URINE POSITIVE (negative); PH, URINE 7.5 (5-7)
[2024-11-23] MEDS ORDERED: SODIUM CHLORIDE 0.9% 1,000 ML IV ONE (09:45)
[2024-11-23 09:57] LABS: BASOPHILS 0.3 % (0-2); EOSINOPHILS 0.4 % (0-6); HEMATOCRIT 37.7 % (35.0-50.0); LYMPHOCYTES 7.2 % (24-44); MCHC 34.6 g/dl (30-36); MCV 89.7 fl (81-99); NEUTROPHILS 86.1 % (39-80); PLATELET COUNT 208 K/uL (140-440); RDW 13.3 (10.5-15.0)
[2024-11-23 10:00] LABS: EPITHELIAL CELLS, URINE SQUAMOUS 1+ /lpf (0-1+)
[2024-11-23 10:01] LABS: BACTERIA, URINE 3+ /hpf (negative); CASTS, URINE NONE SEEN \\lpf; COLLECTION TYPE, URINE CLEAN CATCH; CRYSTALS, URINE NONE SEEN (0-1+); REFLEX CULTURE, URINE Yes (No); WHITE BLOOD CELLS, URINE 21-40 /HPF (0-5)
[2024-11-23 10:12] LABS: ALBUMIN 3.7 g/dL (3.4-5.0); ALBUMIN/GLOBULIN RATIO 1.09 (1.1-2.4); ANION GAP 15.9 (7-21); BILIRUBIN, TOTAL 0.7 mg/dL (0.2-1.0); BUN/CREATININE RATIO 19.19 (6.0-28.6); CALCIUM 9.2 mg/dL (8.5-10.1); CREATININE, SERUM 0.99 mg/dL (0.55-1.02); POTASSIUM 3.9 mmol/L (3.5-5.1); PROTEIN, TOTAL 7.1 g/dL (6.4-8.2)
[2024-11-23] MEDS ORDERED: CEFTRIAXONE SODIUM 1 GM in SODIUM CHLORIDE 0.9% 100 ML IV ONE (11:15)
[2024-11-23] MEDS ORDERED: CEFTRIAXONE SODIUM 1 GM VIAL IV ONE (11:18)
[2024-11-23] MEDS ORDERED: CEPHALEXIN500 M1 PO (11:22)
[2024-11-23] MEDS ORDERED: ACETAMINOPHEN 500 MG TAB PO ONE (11:45)
[2024-11-23 12:07] VITALS: BP 103/64
== END 2024-11-23 12:08 | disposition home or self-care (01) ==
LOC: ED 09:24
PROVIDERS: Emergency Medicine
DX: N39.0 Urinary tract infection, site not specified (principal); J45.909 Unspecified asthma, uncomplicated; F17.200 Nicotine dependence, unspecified, uncomplicated; Z86.16 Personal history of COVID-19; Z86.718 Personal history of other venous thrombosis and embolism; Z88.2 Allergy status to sulfonamides; Z88.1 Allergy status to other antibiotic agents; Z88.5 Allergy status to narcotic agent; Z88.8 Allergy status to other drugs, medicaments and biological substances; Z91.040 Latex allergy status; Z91.018 Allergy to other foods; Z79.899 Other long term (current) drug therapy
CPT/HCPCS: 36415; 80053; 81001; 85025; 87088; 96374; 99284-25; A9270; J7030